=== PATIENT | female | born 1945 | race Caucasian/White ===

== ENCOUNTER 2019-08-16 11:47 | Emergency (ER) | payer MEDICARE ==
[~2019-08-16] VITALS: Ht 160 cm; Wt 85.7 kg
[2019-08-16] MEDS ORDERED: OXYMETAZOLINE 0.05% NASAL SPRAY 30ML BOTTLE. NS ONE (12:15)
--- NOTE | 2019-08-16 12:23 | PHYS DOC ---
Adult General Chief Complaint Chief Complaint: MECHANICAL FALL HPI HPI Patient is a 74 year old female who presents via EMS with complaining of a fall. Patient states she was walking in the parking lot of her [place]-rise apartment and lost her balance and had a fall and landed on back of her head without loss of consciousness. Patient complaining of a"bump" in back of her head and rated her pain for over tetanus amount of pain medication in ER. Patient currently taking glucose for atrial fibrillation. Patient had mild nasal bleeding after arrival to ER. Patient denies chest pain, shortness of breath, focal neuro deficit, nausea and vomiting, other bleeding. Review of Systems Review of Systems Constitutional: Denies fever or chills [] Eyes: Denies change in visual acuity, redness, or eye pain [] HENT: Denies nasal congestion or sore throat [] Respiratory: Denies cough or shortness of breath [] Cardiovascular: No additional information not addressed in HPI [] GI: Denies abdominal pain, nausea, vomiting, bloody stools or diarrhea [] : Denies dysuria or hematuria [] Musculoskeletal: Denies back pain or joint pain [] Integument: Denies rash or skin lesions [] Neurologic: Denies headache, focal weakness or sensory changes [] Endocrine: Denies polyuria or polydipsia [] All other systems were reviewed and found to be within normal limits, except as documented in this note. Current Medications Current Medications Current Medications Medications (Trade) Dose Ordered Sig/Santiago Start Time Stop Time Status Last Admin Dose Admin Oxymetazoline HCl (Afrin) 2 spray 1X ONCE 08/16/19 12:15 08/16/19 12:16 DC 08/16/19 12:26 2 SPRAY Allergies Allergies Allergies Coded Allergies Type Severity Reaction Last Updated Verified Penicillins Allergy Unknown 08/16/19 Yes Sulfa (Sulfonamide Antibiotics) Allergy Unknown 08/16/19 Yes codeine Allergy Unknown 08/16/19 Yes Physical Exam Physical Exam Constitutional: Well developed, well nourished, mild distress, non-toxic appearance. [] HENT: Normocephalic, very large hematoma in the occipital scalp, small oozing of blood in left nare Eyes: PERRLA, EOMI, conjunctiva normal, no discharge. [] Neck: Normal range of motion, no tenderness, supple, no stridor. [] Cardiovascular:Heart rate regular rhythm, no murmur [] Lungs & Thorax: Bilateral breath sounds clear to auscultation [] Abdomen: Bowel sounds normal, soft, no tenderness, no masses, no pulsatile masses. [] Skin: Warm, dry, no erythema, no rash. [] Back: No tenderness, no CVA tenderness. [] Extremities: No tenderness, no cyanosis, no clubbing, ROM intact, 1+ bilateral lower extremity edema. [] Neurologic: Alert and oriented X 3, no focal deficits noted. [] Psychologic: Affect normal, judgement normal, mood normal. [] Current Patient Data Vital Signs Vital Signs Date Time Temp Pulse Resp B/P (MAP) Pulse Ox O2 Delivery O2 Flow Rate FiO2 08/16/19 12:52 99 18 96 08/16/19 11:47 98.2 155/104 (121) Room Air 98.2 EKG EKG [] Radiology/Procedures Radiology/Procedures [][facility] [address] [place] [address] IMAGING REPORT Signed PATIENT: MARCOS BENÍTEZ ACCOUNT: [id number] : 1945 LOCATION: ER AGE: 74 SEX: F EXAM STATUS: REG ER ORD. PHYSICIAN: HOLLEY CASTLE MD REASON: fall PROCEDURE: CT HEAD AND CERVICAL SPINE WO Examination: CT HEAD AND CERVICAL SPINE WO History: Fall, pain Comparison/Correlation: None Findings: Axial images of the head and cervical spine were obtained without contrast. Sagittal and coronal reformatted images of the cervical spine were provided. Atrophy and chronic ischemic changes and white matter are present. Partial opacification of ethmoid air cells and the left maxillary sinus noted. At the posterior midline, there is a subgaleal measuring up to 5.2 cm transverse. No depressed fracture. The atlantoaxial joint degenerative remodeling is present. Facet joint degenerative changes are present particularly on the left at the upper cervical spine level. Moderate neural foraminal narrowing on the left is present. Soft tissues of the neck are unremarkable. Facet joint degenerative hypertrophy present without distention of multiple levels of the cervical spine. Moderate C6-7 disc space narrowing is present. Spurring of the vertebral bodies about this level noted anteriorly. Mild emphysematous involvement of the lungs apices noted. Degenerative changes with left temporomandibular joint. Impression: Subgaleal hematoma at the posterior midline of the head. No intracranial hemorrhage. No fracture or bony destruction. Alignment of the cervical spine is normal. PQRS Compliance Statement: One or more of the following individualized dose reduction techniques were utilized for this examination: 1. Automated exposure control 2. Adjustment of the mA and/or kV according to patient size 3. Use of iterative reconstruction technique Electronically signed by: Eugene Vicente MD (08/16/2019 12:41 PM) [facility] DICTATED and SIGNED BY: EUGENE VICENTE MD DATE: 08/16/19 1241 Course & Med Decision Making Course & Med Decision Making Pertinent Imaging studies reviewed. (See chart for details) Evaluation of patient in ER showed 74-year-old female patient on Eliquis with a fall and nausea multiple of the scalp. Patient had unremarkable CT head and neck except for large hematoma of the scalp. Patient ambulated without problem and feels comfortable to go home. Patient did not have any pain medication for home. Patient was advised to apply ice on the affected area. Dragon Disclaimer Dragon Disclaimer This electronic medical record was generated, in whole or in part, using a voice recognition dictation system. Departure Departure Impression: Primary Impression: Scalp hematoma Additional Impressions: Fall from standing At risk for bleeding associated with anticoagulants Disposition: 01 HOME, SELF-CARE (at 1327) Condition: IMPROVED Referrals: SANDHYA ROCHA (PCP) Patient Instructions: Nosebleed, Scalp Hematoma Additional Instructions: Apply ice on the affected area Follow-up with your primary care physician in 3-5 days Return to ER if not getting better Problem Qualifiers Primary Impression: Scalp hematoma Encounter type: initial encounter Qualified Codes: S00.03XA - Contusion of scalp, initial encounter Additional Impressions: Fall from standing Encounter type: subsequent encounter Qualified Codes: W19.XXXD - Unspecified fall, subsequent encounter HOLLEY CASTLE MD Aug 16, 2019 12:23
--- NOTE | 2019-08-16 12:44 | RAD ---
Examination: CT HEAD AND CERVICAL SPINE WO History: Fall, pain Comparison/Correlation: None Findings: Axial images of the head and cervical spine were obtained without contrast. Sagittal and coronal reformatted images of the cervical spine were provided. Atrophy and chronic ischemic changes and white matter are present. Partial opacification of ethmoid air cells and the left maxillary sinus noted. At the posterior midline, there is a subgaleal measuring up to 5.2 cm transverse. No depressed fracture. The atlantoaxial joint degenerative remodeling is present. Facet joint degenerative changes are present particularly on the left at the upper cervical spine level. Moderate neural foraminal narrowing on the left is present. Soft tissues of the neck are unremarkable. Facet joint degenerative hypertrophy present without distention of multiple levels of the cervical spine. Moderate C6-7 disc space narrowing is present. Spurring of the vertebral bodies about this level noted anteriorly. Mild emphysematous involvement of the lungs apices noted. Degenerative changes with left temporomandibular joint. Impression: Subgaleal hematoma at the posterior midline of the head. No intracranial hemorrhage. No fracture or bony destruction. Alignment of the cervical spine is normal. PQRS Compliance Statement: One or more of the following individualized dose reduction techniques were utilized for this examination: 1. Automated exposure control 2. Adjustment of the mA and/or kV according to patient size 3. Use of iterative reconstruction technique Electronically signed by: Eugene Acevedo MD (08/16/2019 12:41 PM) [facility]
[2019-08-16 12:52] VITALS: BP 160/88
== END 2019-08-16 13:47 | disposition home or self-care (01) ==
LOC: ER 11:47
DX: S00.03XA Contusion of scalp, initial encounter (principal); R51 Headache; M54.2 Cervicalgia; I48.91 Unspecified atrial fibrillation; Z79.01 Long term (current) use of anticoagulants; Z88.0 Allergy status to penicillin; Z88.2 Allergy status to sulfonamides; Z88.5 Allergy status to narcotic agent; W18.09XA Striking against other object with subsequent fall, initial encounter; Y93.01 Activity, walking, marching and hiking; Y92.481 Parking lot as the place of occurrence of the external cause; Y99.8 Other external cause status
CPT/HCPCS: 70450; 72125; 99284

== ENCOUNTER → 2021-02-25 | Outpatient (CLI) | payer MEDICARE ==
--- NOTE | 2021-02-25 16:38 | CARD ---
MR#: [id number] Date of Study: 02/25/2021 Ordering Physician: MARTHA OHARA, Referring Physician: MARTHA OHARA, Tech: Rebeca Angelo, [facility] APPROVED REPORT EXAM: Two-dimensional and M-mode echocardiogram with Doppler and color Doppler. Other Information Quality : Average INDICATION Atrial Fibrillation RISK FACTORS Hypertension Hyperlipidemia 2D DIMENSIONS RVDd3.2 (2.9-3.5cm)Left Atrium(2D)2.9 (1.6-4.0cm) IVSd0.6 (0.7-1.1cm)Aortic Root(2D)2.8 (2.0-3.7cm) LVDd4.5 (3.9-5.9cm)LVOT Diameter1.9 (1.8-2.4cm) PWd0.7 (0.7-1.1cm)LVDs2.9 (2.5-4.0cm) FS (%) 35.7 %SV59.7 ml LVEF(%)60.3 (>50%) Aortic Valve AoV Peak Karthik.84.1cm/sAoV VTI15.1cm AO Peak GR.2.8mmHgLVOT Peak Karthik.65.2cm/s LVOT VTI 13.08cmAO Mean GR.2mmHg LACY (VMAX)1.53cy6FPX (VTI)2.39cm2 Mitral Valve MV E Dgfvysfl34.5cm/s TDI E/Lateral E'4.9E/Medial E'6.1 Pulmonary Valve PV Peak Hyfakoxy42.5cm/sPV Peak Grad.2mmHg Tricuspid Valve TR P. [id number]/sRAP [id number] TR Peak Gr.[id number] LEFT VENTRICLE The left ventricle is normal size. There is normal left ventricular wall thickness. The left ventricu lar systolic function is normal. The Ejection Fraction is 55%. Sepal motion consistent with conductio n abnormality. Diastology indeterminate due to atrial fibrillation. RIGHT VENTRICLE The right ventricle is normal size. There is normal right ventricular wall thickness. The right ventr icular systolic function is normal. ATRIA The left atrium size is normal. The right atrium size is normal. The interatrial septum is intact wit h no evidence for an atrial septal defect or patent foramen ovale as noted on 2-D or Doppler imaging. AORTIC VALVE The aortic valve is normal in structure and function. Doppler and Color Flow revealed trace aortic re gurgitation. Calculated aortic valve area is 2.83 cm2 with maximum pressure gradient of 3 mmHg and me an pressure gradient of 2 mmHg. There is no significant aortic valvular stenosis. MITRAL VALVE The mitral valve is normal in structure and function. There is no evidence of mitral valve prolapse. There is no mitral valve stenosis. Doppler and Color-flow revealed trace mitral regurgitation. TRICUSPID VALVE The tricuspid valve is normal in structure and function. Doppler and Color Flow revealed trace tricus pid regurgitation with an estimated PAP of 28 mmHg. There is no tricuspid valve stenosis. PULMONIC VALVE The pulmonic valve is not well visualized. Doppler and Color Flow revealed trace pulmonic valvular re gurgitation. GREAT VESSELS The aortic root is normal in size. The IVC is normal in size and collapses >50% with inspiration. PERICARDIAL EFFUSION There is no evidence of significant pericardial effusion. Critical Notification Critical Value: No <Conclusion> The left ventricular systolic function is normal. The Ejection Fraction is 55%. Trace mitral regurgitation. Trace tricuspid regurgitation with an estimated PAP of 28 mmHg. There is no evidence of significant pericardial effusion. Signed by : Crescencio Mckeon, Electronically Approved : 02/25/2021 16:37:46
== END ==
LOC: ECHO 13:42
PROVIDERS: ATTEND Internal Medicine Cardiovascular Disease
DX: I48.91 Unspecified atrial fibrillation (principal)
CPT/HCPCS: 93306